=== PATIENT | female | born 1985 | race Caucasian/White ===

== ENCOUNTER → 2016-08-16 | Outpatient (CLI) | payer BC ==
--- NOTE | 2016-08-16 14:24 | DIAGNOSTIC IMAGING REPORT ---
HYSTEROSALPINGOGRAM HISTORY: Infertility. FLUOROSCOPY TIME: 0.3 minutes. 3 images submitted. TECHNIQUE: The cervix was cannulated by the recreational assistant-certified coder and water soluble contrast was instilled into the uterus under fluoroscopic guidance. Multiple spot images were obtained. FINDINGS: The uterine cavity is normal in size, shape, and position. The fallopian tubes are patent and there is free peritoneal spill bilaterally. IMPRESSION: Normal hysterosalpingogram. Electronically signed by: Deuce Allison M.D. 08/16/2016 2:23 PM Dictated Date/Time: 08/16/2016 2:23 PM
--- NOTE | 2016-08-16 14:54 | DIAGNOSTIC IMAGING REPORT ---
HYSTEROSALPINGOGRAM HISTORY: Infertility. FLUOROSCOPY TIME: 0.3 minutes. 3 images submitted. TECHNIQUE: The cervix was cannulated by the surgical nurse-ammonia operator and water soluble contrast was instilled into the uterus under fluoroscopic guidance. Multiple spot images were obtained. FINDINGS: The uterine cavity is normal in size, shape, and position. The fallopian tubes are patent and there is free peritoneal spill bilaterally. IMPRESSION: Normal hysterosalpingogram. Electronically signed by: Deuce Allison M.D. 08/16/2016 2:23 PM Dictated Date/Time: 08/16/2016 2:23 PM
== END | disposition home or self-care (01) ==
LOC: C.RAD 12:27
PROVIDERS: ATTEND Obstetrics & Gynecology
DX: N97.9 Female infertility, unspecified (principal)

== ENCOUNTER → 2017-01-26 | Outpatient (CLI) | payer BC | END | disposition home or self-care (01) | LOC: C.CPL 11:35 | PROVIDERS: ATTEND Nurse Practitioner Adult Health | DX: O09.891 Supervision of other high risk pregnancies, first trimester (principal); Z3A.00 Weeks of gestation of pregnancy not specified ==

== ENCOUNTER → 2017-02-23 | Outpatient (CLI) | payer BC | END | disposition home or self-care (01) | LOC: C.CPL 11:37 | PROVIDERS: ATTEND Pediatrics Pediatric Cardiology | DX: Z09 Encounter for follow-up examination after completed treatment for conditions other than malignant neoplasm (principal); O09.891 Supervision of other high risk pregnancies, first trimester; Z3A.00 Weeks of gestation of pregnancy not specified ==

== ENCOUNTER → 2017-03-30 | Outpatient (CLI) | payer BC | END | disposition home or self-care (01) | LOC: C.CPL 09:43 | PROVIDERS: ATTEND Nurse Practitioner Adult Health | DX: O09.891 Supervision of other high risk pregnancies, first trimester (principal); Z3A.00 Weeks of gestation of pregnancy not specified ==

== ENCOUNTER 2019-10-08 05:22 | Inpatient (IN) ==
[2019-10-08] MEDS ORDERED: LACTATED RINGER'S 1,000 ML IV SCH (05:30)
[2019-10-08 05:59] LABS: Basophils # (auto) 0.01 K/uL (0-0.2); Basophils % (auto) 0.1 %; Eosinophils # (auto) 0.12 K/uL (0-0.5); Eosinophils % (auto) 1.3 %; Hematocrit (blood only) 37.5 % (37-47); Hemoglobin 12.3 g/dL (12.0-16.0); Immature Granulocytes # (auto) 0.02 K/uL (0.00-0.02); Immature Granulocytes % (auto) 0.2 %; Lymphocytes % (auto) 25.5 %; Mean Corpuscular Hemoglobin 27.3 pg (25-34); Mean Corpuscular Volume 83.3 fL (80-100); Mean Platelet Volume 12.4 fL (7.4-10.4); Monocytes # (auto) 0.45 K/uL (0.11-0.59); Monocytes % (auto) 4.8 %; Neutrophils # (auto) 6.43 K/uL (1.4-6.5); Neutrophils % (auto) 68.1 %; Platelet Count 161 K/uL (130-400); RDW Coefficient of Variation 14.7 % (11.5-14.5); RDW Standard Deviation 44.8 fL (36.4-46.3); White Blood Count 9.43 K/uL (4.8-10.8)
[2019-10-08] MEDS ORDERED: CITRIC ACID/SODIUM CITRATE 15 ML UDC PO SCH (06:00)
[2019-10-08] MEDS ORDERED: CEFAZOLIN 3000MG 65 ML IV SCH (06:00)
[2019-10-08 06:05] LABS: Mean Corpuscular Hgb Conc 32.8 g/dL (32-36)
[2019-10-08] MEDS ORDERED: MoRPHine SULFATE PF 1 MG/ML 10 ML AMP/VIAL ONE (07:32)
[2019-10-08] MEDS ORDERED: fentaNYL citrate 100 MCG/2 ML VIAL ONE (07:32)
[2019-10-08] MEDS ORDERED: ONDANSETRON INJ 2 MG/ML 2 ML VIAL ONE (07:57)
[2019-10-08] MEDS ORDERED: OXYTOCIN 10 UNITS/ML VIAL ONE ×4 (07:57→08:25)
[2019-10-08] MEDS ORDERED: MEPERIDINE HCL 25 MG/ML CARP/VIAL IV PRN ×2 (08:08→16:27)
[2019-10-08] MEDS ORDERED: LACTATED RINGER'S 500 ML IV PRN (08:08)
[2019-10-08] MEDS ORDERED: PROMETHAZINE HCL 6.25 MG in SODIUM CHLORIDE 0.9% 50 ML IV PRN (08:08)
[2019-10-08] MEDS ORDERED: ePHEDrine sulfate 50 MG/ML AMP IV PRN (08:08)
[2019-10-08] MEDS ORDERED: NALOXONE HCL 0.4 MG/1 ML VIAL/CARP IV PRN (08:08)
[2019-10-08] MEDS ORDERED: ONDANSETRON INJ 2 MG/ML 2 ML VIAL IV PRN (08:08)
[2019-10-08] MEDS ORDERED: DiphenhydrAMINE HCL 50 MG/ML VIAL IV PRN (08:08)
[2019-10-08] MEDS ORDERED: MoRPHine SULFATE 2 MG/ML CARP IV PRN (08:08)
[2019-10-08] MEDS ORDERED: HYDROmorphone INJ 0.5 MG/0.5 ML SYR IV PRN (08:08)
[2019-10-08] MEDS ORDERED: NALOXONE HCL 1 MG in SODIUM CHLORIDE 0.9% 1000ML 1,000 ML IV PRN (08:08)
[2019-10-08] MEDS ORDERED: NALOXONE HCL 0.08 MG in SYRINGE 1.8 ML IV PRN (08:08)
[2019-10-08] MEDS ORDERED: MoRPHine SULFATE PF 1 MG/ML 10 ML AMP/VIAL INT SPINAL ONE (08:08)
[2019-10-08] MEDS ORDERED: NALBUPHINE HCL INJ 10 MG/ML AMP IV PRN (08:08)
--- NOTE | 2019-10-08 08:08 | Anesthesiology Consultation ---
Date of Service October 08, 2019 Assessment & Plan (1) Encounter for pre-operative examination: Chart Review Chart Review: Acceptable Risk for Surgery and Patient NOT seen in Pre Admission Testing Consults Requested none ASA ASA2 Proposed Anesthesia Anesthesia Type: Spinal (+ intrathecal narcotics) Risk / Benefits Reviewed With: PT / POA / Parent / Guardian, Accepts Plan and Informed Consent Obtained History Surgery Operation Date: 10/08/19 07:30 Proposed Procedures p Section - Danny Amado MD Height/Weight Height: 5 ft 6 in Weight: 124.738 kg Allergies Allergy/AdvReac Type Severity Reaction Status Date / Time No Known Allergies Allergy Verified 10/08/19 06:00 Medications Home Medications Medication Instructions Recorded Confirmed Last Taken PNV cmb#95-ferrous fumarate-FA 1 tab PO QAM 10/01/19 10/01/19 Unknown [] albuterol sulfate [ProAir HFA] 1 inh INHALATION QID PRN 10/01/19 10/01/19 Unknown aspirin 81 mg PO QAM 10/01/19 10/01/19 Unknown NPO Date Last Intake of Fluids: 10/07/19 Time Last Intake of Fluids: 22:30 Date Last Intake of Solids: 10/07/19 Time Last Intake of Solids: 21:30 Past Medical History Medical History Exercise-induced asthma LAST USED OVER 1 YEAR AGO History of pre-eclampsia Exercise / Class Metabolic Activity II 4-5 Yardwork/Stairs/Walk up hill Past Family History Family History Other No significant family history Past Surgical History Surgical History History of section X 1 History of surgery on arm RT ARM FRACTURE REPAIR (HARDWARE INTACT) Past Anesthesia History No Hx of Anesthesia Complications and No Family Hx of Anesthesia Complications History of PONV No Hx of PONV and No Hx of Motion Sickness Social History Smoking Status: Never smoker Do You Dip or Chew Tobacco: No Hx Alcohol Use: No Hx Substance Use: No Physical Exam Vital Signs Last Vital Signs Temp 36.8 C 10/08/19 05:38 Pulse 81 10/08/19 07:02 Resp 20 10/08/19 05:38 BP 131/77 10/08/19 07:02 ENMT Mouth: no dentition abnormality Thyromental Distance: > or= 3.5 Finger Breadths Mallampati Class: II Neck normal visual inspection Respiratory normal respiratory effort Auscultation: lungs clear to auscultation bilaterally Cardiovascular Rate/Rhythm: regular rate and regular rhythm Psychiatric Orientation: alert Testing Laboratory Results 10/08/19 05:48 Blood Type O Positive 10/08/19 05:48 Antibody Screen NEGATIVE 10/08/19 05:48
[2019-10-08] MEDS ORDERED: DC INTRASPINAL MORPHINE SCH (08:15)
[2019-10-08] MEDS ORDERED: NO NARCOTICS OR SEDATIVES SCH (08:15)
[2019-10-08] MEDS ORDERED: SODIUM CHLORIDE 0.9% 1000ML 1,000 ML IV SCH (08:15)
[2019-10-08] MEDS ORDERED: PHENYLEPHRINE 100MCG/ML 5ML SYR ONE (08:25)
[2019-10-08] MEDS ORDERED: METHYLERGONOVINE MALEATE 0.2 MG/ML AMP ONE (08:25)
[2019-10-08] MEDS ORDERED: miSOPROStoL 200 MCG TAB ONE (08:28)
[2019-10-08] MEDS ORDERED: KETOROLAC 30 MG/ML VIAL ONE (08:47)
[2019-10-08] MEDS ORDERED: DIPHTHERIA/TETANUS/PERTUSSIS 0.5 ML SYR/VIAL IM ONE (09:13)
[2019-10-08] MEDS ORDERED: SENNA 8.6 MG TAB PO PRN (09:13)
[2019-10-08] MEDS ORDERED: BENZOCAINE 20% AER SPR 82.5 GM CAN EXT PRN (09:13)
[2019-10-08] MEDS ORDERED: PROMETHAZINE HCL 25 MG in SODIUM CHLORIDE 0.9% 50 ML IV PRN (09:13)
[2019-10-08] MEDS ORDERED: HYDROCORTISONE ACETATE 25 MG SUPP PR PRN (09:13)
[2019-10-08] MEDS ORDERED: SUPERCREAM 0.870% 15 GM JAR EXT PRN (09:13)
[2019-10-08] MEDS ORDERED: MAGNESIUM HYDROXIDE SUSP 30 ML UDC PO PRN (09:13)
[2019-10-08 09:21] LABS: Base Excess Cord Arterial Bld -8.6 mEq/L (-9-1.8); CO2 Cord Arterial Blood 67 mmHg (39.1-73.5); HCO3 Cord Arterial Blood 22 mmol/L (19.7-28.5); PO2 Cord Arterial Blood 26 mmHg (4.1-31.7); pH Cord Arterial Blood 7.13 (7.1-7.38)
--- NOTE | 2019-10-08 09:21 | Anesthesiology Progress Note ---
Date of Service October 08, 2019 Anesthesia Post Procedure Vital Signs Vital Signs: Temp Pulse Resp BP Pulse Ox 10/08/19 09:19 75 100 10/08/19 09:16 82 94 10/08/19 09:14 73 120/58 L 99 10/08/19 09:09 79 97 10/08/19 09:04 74 119/92 99 10/08/19 07:02 81 131/77 10/08/19 05:38 36.8 C 20 10/08/19 05:33 96 H 142/88 H Transfer of Care Handoff Completed per policy Notes Mental Status: alert / awake / arousable Nausea / Vomiting: adequately controlled Pain: adequately controlled Airway Patency, RR, SpO2: stable & adequate BP & HR: stable & adequate Hydration State: stable & adequate Neuraxial Anesthesia: was administered and sensory block is resolving Anesthetic Complications: no major complications apparent
[2019-10-08 09:25] LABS: Base Excess Cord Venous Blood -8.9 mEq/L (-7.7-1.9); Cord Venous Blood HCO3 22 mmol/L (18.4-26.8); Cord Venous Blood PCO2 66 mmHg (30.4-57.2); Cord Venous Blood PO2 23 mmHg (14.1-43.3); Cord Venous Blood pH 7.13 (7.20-7.44)
[2019-10-08 09:26] LABS: Oxygen Sat Cord Arterial Blood < 60.0 % (<60)
[2019-10-08 09:27] LABS: O2 Saturation Cord Venous Bld < 60.0 % (<68)
--- NOTE | 2019-10-08 09:38 | Operative Report (OR) ---
DATE OF OPERATION: 10/08/2019 INDICATION FOR SURGERY: This is a 34-year-old G2, P1 at 39 weeks and 2 days. Previous section, wishes to have repeat . PREOPERATIVE DIAGNOSES: 1. at term. 2. Previous section. The patient refuses a trial of labor after . POSTOPERATIVE DIAGNOSES: Same. PROCEDURE: Repeat section. SURGEON: Danny Amado MD FABRICATION DEPARTMENT SUPERVISOR: Viviana Barnard ANESTHESIA: Spinal. FINDINGS: Live in cephalic presentation. Tubes and ovaries appeared grossly normal. Uterus appeared grossly normal as well. There were some adhesions of the anterior abdominal wall to the anterior part of the uterus. This was easily dissected. ESTIMATED BLOOD LOSS: 600 mL URINE OUTPUT: 200 mL clear urine at end of procedure. INTRAVENOUS FLUIDS: 1500 mL COMPLICATIONS: None. DRAINS: Kincaid catheter. SPECIMEN: Placenta and cord blood gas. DISPOSITION: Stable to recovery room. PROCEDURE: The patient was taken to the operating room where she was prepped and draped in normal sterile fashion. Timeout was called. A Pfannenstiel incision was made through the old scar and carried down to the fascia. Fascia was incised in the midline and extended laterally on both sides. There was some adhesion of the anterior wall to the peritoneum which was sharply dissected off. Once inside the abdomen, an Mayito retractor was placed for retraction. Vesicouterine peritoneum was identified and sharply dissected off the lower segment of the uterus. Transverse incision was made in the lower segment of the uterus and extended laterally on both sides with a scalpel. 's head was delivered atraumatically. Cord was clamped and cut and infant handed over to the pediatric team. Details of the is in the pediatric record. Placenta was manually removed. Uterus was exteriorized and cleared of all clots and debris. Uterus was closed in 2 layers with Vicryl. There was good hemostasis post-closure. As stated above, the uterus, adnexa appeared grossly normal. Copious amount of irrigation was used to irrigate the abdomen. The uterus was returned to the abdominal cavity. There was good hemostasis. Mayito retractor was removed and fascia was closed in a running fashion using PDS suture. There was good hemostasis post-closure. SubQ space was irrigated and closed with plain suture. Skin was closed with tiffanie. All instruments were removed from the abdomen and accounted for x2 including sponges, retractors and needles. The patient and infant are doing well in recovery. I attest to the content of the Intraoperative Record and any orders documented therein. Any exception s are noted below.
[2019-10-08] MEDS: KETOROLAC 30 MG/ML VIAL IV PRN ×3 (11:34→23:25)
[2019-10-08] MEDS: SIMETHICONE 80 MG CHEW PO SCH ×3 (14:26→20:34)
[2019-10-08] MEDS: LACTATED RINGER'S 1,000 ML IV SCH ×2 (15:30→19:24)
[2019-10-08] MEDS ORDERED: OXYTOCIN 10 UNITS/ML VIAL IM ONE (16:14)
[2019-10-08] MEDS: DOCUSATE SODIUM 100 MG CAP PO SCH (20:34)
[2019-10-09] MEDS ORDERED: ONDANSETRON INJ 2 MG/ML 2 ML VIAL IV PRN (02:09)
[2019-10-09] MEDS ORDERED: DiphenhydrAMINE HCL 50 MG/ML VIAL IV PRN (02:09)
[2019-10-09] MEDS ORDERED: MEPERIDINE HCL 25 MG/ML CARP/VIAL IV ONE (02:09)
[2019-10-09] MEDS: OXYCODONE/ACETAMINOPHEN 5mg/325mg TAB PO PRN ×5 (06:53→23:55)
[2019-10-09] MEDS: IBUPROFEN 600 MG TAB PO PRN ×5 (06:54→23:56)
[2019-10-09 07:04] LABS: Basophils # (auto) 0.01 K/uL (0-0.2); Basophils % (auto) 0.1 %; Eosinophils # (auto) 0.08 K/uL (0-0.5); Hematocrit (blood only) 31.7 % (37-47); Hemoglobin 10.4 g/dL (12.0-16.0); Immature Granulocytes # (auto) 0.03 K/uL (0.00-0.02); Immature Granulocytes % (auto) 0.4 %; Lymphocytes # (auto) 1.28 K/uL (1.2-3.4); Lymphocytes % (auto) 16.3 %; Mean Corpuscular Hgb Conc 32.8 g/dL (32-36); Mean Corpuscular Volume 85.2 fL (80-100); Mean Platelet Volume 12.1 fL (7.4-10.4); Monocytes # (auto) 0.64 K/uL (0.11-0.59); Monocytes % (auto) 8.1 %; Neutrophils # (auto) 5.83 K/uL (1.4-6.5); Neutrophils % (auto) 74.1 %; Platelet Count 114 K/uL (130-400); Platelet Estimate Decreased (Normal); RDW Coefficient of Variation 14.8 % (11.5-14.5); RDW Standard Deviation 45.9 fL (36.4-46.3); Red Blood Count 3.72 M/uL (4.2-5.4); White Blood Count 7.87 K/uL (4.8-10.8)
--- NOTE | 2019-10-09 08:01 | Obstetrical Progress Note ---
Date of Service October 09, 2019 Assessment & Plan Admission and Anticipated Discharge Date Admission Date: October 08, 2019 Physical Exam Physical Exam: abdomen soft and non tender no calf tenderness passing flatus ambulating well incision is dry vaginal bleeding is scant hgb 10.4 Results & Data ([facility]) Vital Signs (Past 12 Hours) Vital Signs Temp Pulse Resp BP Pulse Ox 10/09/19 03:15 36.8 C 91 H 17 116/74 95 10/09/19 01:25 14 96 10/09/19 00:25 17 97 10/08/19 23:25 15 96 10/08/19 23:00 36.8 C 87 16 124/78 97 10/08/19 22:25 16 94 10/08/19 21:25 16 96 10/08/19 20:25 16 96
[2019-10-09] MEDS: FERROUS SULFATE 325 MG TAB PO SCH (08:36)
[2019-10-09] MEDS: DOCUSATE SODIUM 100 MG CAP PO SCH ×2 (08:36→21:06)
[2019-10-09] MEDS: SIMETHICONE 80 MG CHEW PO SCH ×4 (08:36→21:39)
[2019-10-09] MEDS: PRENATAL VITAMIN 1 TAB PO SCH (08:36)
[2019-10-09] MEDS ORDERED: bisacodyL 5 MG TABEC PO SCH (20:00)
[2019-10-10] MEDS: IBUPROFEN 600 MG TAB PO PRN ×3 (04:34→13:21)
[2019-10-10] MEDS: OXYCODONE/ACETAMINOPHEN 5mg/325mg TAB PO PRN ×3 (04:35→13:22)
[2019-10-10 06:35] LABS: Hemoglobin 10.4 g/dL (12.0-16.0)
[2019-10-10] MEDS: DOCUSATE SODIUM 100 MG CAP PO SCH (08:46)
[2019-10-10] MEDS: SIMETHICONE 80 MG CHEW PO SCH ×2 (08:46→13:21)
[2019-10-10] MEDS: PRENATAL VITAMIN 1 TAB PO SCH (08:46)
[2019-10-10] MEDS: FERROUS SULFATE 325 MG TAB PO SCH (08:47)
[2019-10-10] MEDS ORDERED: bisacodyL 10 MG SUPP PR PRN (09:14)
--- NOTE | 2019-10-10 10:35 | Surgery Progress Note ---
Date of Service October 10, 2019 Physical Exam Physical Exam: PPD#2 feeling well out of bed tolerating diet passing gas wants to go home but baby may need to stay Constitutional: WD/WN, vitals as above comfortable abdomen soft EDNA dressing intact no edema neg Manuel's tent d/c pending baby Results & Data Vital Signs (Past 12 Hours) Vital Signs Temp Pulse Resp BP Pulse Ox 10/10/19 07:15 36.5 C 83 18 122/80 98 10/09/19 23:45 36.5 C 78 16 138/85 97 Laboratory Results Laboratory Results - last 48 hr 10/09/19 10/10/19 06:16 05:56 WBC 7.87 RBC 3.72 L Hgb 10.4 L 10.4 L Hct 31.7 L 32.0 L MCV 85.2 MCH 28.0 MCHC 32.8 RDW Std Deviation 45.9 RDW Coeff of Karla 14.8 H Plt Count 114 L MPV 12.1 H Immature Gran % (Auto) 0.4 Neut % (Auto) 74.1 Lymph % (Auto) 16.3 [place] % (Auto) 8.1 Eos % (Auto) 1.0 Baso % (Auto) 0.1 Immature Gran # (Auto) 0.03 H Neut # (Auto) 5.83 Lymph # (Auto) 1.28 [place] # (Auto) 0.64 H Eos # (Auto) 0.08 Baso # (Auto) 0.01 Platelet Estimate Decreased L
--- NOTE | 2019-10-25 12:14 | Discharge Summary (DS) ---
CHIEF COMPLAINT: 1. at term. 2. Previous section, wishes to have repeat . HISTORY OF PRESENT ILLNESS: This is a 34-year-old , at term with a due date of 10/13/2019, making her 39 weeks and 2 days on 10/08/2019 when she presented to labor and delivery for repeat section. The patient had been counseled in the office about trial of labor after versus repeat . The patient after adequate counseling had agreed to undergo repeat section. On the morning of , the patient arrived, was evaluated and proceeded to have the section. The patient delivered a live . Details of infant including and weight are in the pediatric record. Surgery was unremarkable. The patient did well postop. On postop day 1, the patient met all milestones including advancement of diet and ambulation. On postop day 2, which was 10/10/2019, the patient was discharged home in stable condition. PAST MEDICAL HISTORY: 1. History of asthma. 2. History of preeclampsia in previous . PAST SURGICAL HISTORY: section and arm surgery. ALLERGIES: No known drug allergies. SOCIAL HISTORY: The patient denies tobacco, drug or alcohol use. The patient is and lives with spouse. FAMILY HISTORY: Noncontributory. REVIEW OF SYSTEMS: Negative except in the HPI. PHYSICAL EXAMINATION: VITAL SIGNS: Blood pressure is 122/80, pulse is 83, respirations 18, temperature 36.5. GENERAL APPEARANCE: Well-developed, well-nourished white female in no acute distress. HEART: S1, S2, regular rhythm and rate. LUNGS: Clear to auscultation bilaterally. ABDOMEN: Nontender, nondistended. Incision clean, dry and intact. EXTREMITIES: No cyanosis, clubbing or edema. LABORATORY DATA: On 10/10/2019 showed hemoglobin of 10.8, hematocrit of 32.0. CONDITION ON DISCHARGE: Stable. OPERATION: Repeat section. DISCHARGE DIAGNOSIS: Postoperative after section. PLAN ON DISCHARGE: The patient was discharged home with instructions regarding activity, diet, followup appointment and medications. FRANCINE
== END 2019-10-10 16:15 | disposition home or self-care (01) | DRG 788 ==
LOC: 4S1 05:22 → EDSTATUS 07:30 → 4S2 11:15